=== PATIENT | male | born 1985 | race Caucasian/White ===

== ENCOUNTER 2020-08-28 21:11 | Emergency (ER) | payer BC ==
[~2020-08-28] VITALS: Ht 188 cm; Wt 91.9 kg
--- NOTE | 2020-08-28 21:39 | NUR ---
TASK RN: PT C/O FEVERS FOR A COUPLE WEEKS. PT STATES FEVER AT HOME PRIOR TO COMING TO ER 104. PT TOOK IBUPROFEN AND TYLENOL @2030. PT EDUCATED TO ALTERNATE IBUPROFEN AND TYLENOL, NOT TO TAKE THEM TOGETHER. PT DENIES CP, SOB. PT SPEAKING IN FULL SENTENCES. PT SEEN AT YESTERDAY, PT GIVEN ZITHROMYCIN FOR PNA, NO CXR TAKEN. YESTERDAY'S COVID TEST NEG. PT CONNECTED TO MOITORING. CALL LIGHT IN REACH. JUAN JOSE GUERRERO STATES TO HOLD IBUPROFEN AT THIS TIME. REPORT GIVEN TO ROSA BENNETT.
[2020-08-28] MEDS ORDERED: SODIUM CHLORIDE 0.9% 1,000ML IVBOLUS ONE ×2 (22:00→23:00)
[2020-08-28] MEDS ORDERED: IBUPROFEN 200 MG TABLET PO ONE (22:00)
[2020-08-28] MEDS ORDERED: SODIUM CHLORIDE FLUSH 10ML SYR IVF ONE (22:00)
[2020-08-28 22:27] LABS: BASOPHILS % (AUTO) 0 % (0-1); EOSINOPHILS % (AUTO) 0 % (1-7); LYMPHOCYTES % (AUTO) 8 % (22-44); MEAN CORPUSCULAR HEMOGLOBIN 28.6 pg (27.5-34.5); MEAN CORPUSCULAR HGB CONC 35.3 g/dL (33.2-36.2); MEAN PLATELET VOLUME 8.2 fL (7.4-10.4); MONOCYTES % (AUTO) 6 % (2-9); NEUTROPHILS % (AUTO) 85 % (42-75); PLATELET COUNT 302 x10^3/uL (130-400); RED BLOOD COUNT 4.67 x10^6/uL (4.38-5.82); RED CELL DISTRIBUTION WIDTH 13.2 % (9.4-14.8)
--- NOTE | 2020-08-28 22:29 | NUR ---
PT RESTING ON GURNEY, NAD, APPEARS COMFORTABLE, VSS, PROVIDED URINAL FOR SAMPLE. BED IN LOWEST, CALL LIGHT ON LAP, RAILS IN PLACE, WCTM.
[2020-08-28 22:33] LABS: ALANINE AMINOTRANSFERASE 23 U/L (12-78); ALBUMIN 3.1 g/dL (3.4-5.0); ANION GAP 8 mmol/L (5-15); CALCIUM 8.7 mg/dL (8.5-10.1); CHLORIDE 97 mmol/L (98-107); CREATININE 0.93 mg/dL (0.7-1.3)
[2020-08-28 22:35] LABS: ALKALINE PHOSPHATASE 104 U/L (45-117); BILIRUBIN,TOTAL 1.2 mg/dL (0.2-1.0); TOTAL PROTEIN 7.2 g/dL (6.4-8.2)
--- NOTE | 2020-08-28 22:38 | NUR ---
PT NAD, RESTING ON [employer], UA SENT TO LAB, APPEARS COMFORTABLE, READING LENI, DENIES ADDITIONAL NEEDS AT THIS TIME. WCTM.
[2020-08-28 22:39] LABS: MD NO
[2020-08-28 22:59] LABS: MICROSCOPIC INDICATED
[2020-08-28] MEDS ORDERED: CEFTRIAXONE PMX 1GM/50ML 50 ML ONE (23:16)
[2020-08-28] MEDS ORDERED: CEFTRIAXONE PMX 1GM/50ML 50 ML IV ONE (23:30)
--- NOTE | 2020-08-29 00:08 | NUR ---
PT RESTING ON GURNEY, READING LENI, NAD, APPEARS COMFORTABLE, NO CHANGE IN CONDITION, WCTM. WAITING FOR ADDITIONAL ORDERS
[2020-08-29] MEDS ORDERED: INSULIN REGULAR 100 UNITS/ML, 3ML VIAL SQ-INSULIN ONE (00:30)
[2020-08-29] MEDS ORDERED: INSULIN SINGLE DOSE, ER ONE (00:50)
[2020-08-29 00:58] VITALS: BP 121/80
--- NOTE | 2020-08-29 01:10 | NUR ---
Patient given discharge instructions and they have confirmed that they understand the instructions. Patient ambulatory with steady gait. NAD, DENIES ADDITIONAL QUESTIONS OR NEEDS AT THIS TIME. NO PERSONAL BELONGINGS LEFT IN ROOM AFTER DC.
== END 2020-08-29 01:21 | disposition home or self-care (01) ==
LOC: ED 08-29 01:15
DX: A41.9 Sepsis, unspecified organism (principal); N30.00 Acute cystitis without hematuria; E11.65 Type 2 diabetes mellitus with hyperglycemia; R50.9 Fever, unspecified; R05 Cough; R00.0 Tachycardia, unspecified
CPT/HCPCS: 36415; 71045; 80053; 81001; 82962; 83605; 84145; 85025; 87040; 87077; 87086; 87186; 93005; 96361; 96365; 99285; J0696; J1815; J7030

== ENCOUNTER 2020-08-29 12:46 | Emergency (ER) | payer BC ==
[~2020-08-29] VITALS: Ht 188 cm; Wt 94.4 kg
[2020-08-29] MEDS ORDERED: SODIUM CHLORIDE FLUSH 10ML SYR IVF ONE (13:30)
[2020-08-29] MEDS ORDERED: CEFTRIAXONE PMX 1GM/50ML 50 ML IVPB ONE (13:30)
[2020-08-29 13:47] LABS: BASOPHILS % (AUTO) 1 % (0-1); EOSINOPHILS % (AUTO) 1 % (1-7); LYMPHOCYTES % (AUTO) 15 % (22-44); MEAN CORPUSCULAR HEMOGLOBIN 28.1 pg (27.5-34.5); MEAN CORPUSCULAR HGB CONC 34.5 g/dL (33.2-36.2); MEAN PLATELET VOLUME 7.8 fL (7.4-10.4); MONOCYTES % (AUTO) 9 % (2-9); NEUTROPHILS % (AUTO) 75 % (42-75); PLATELET COUNT 285 x10^3/uL (130-400); RED CELL DISTRIBUTION WIDTH 13.1 % (9.4-14.8)
[2020-08-29 13:48] LABS: MD NO
[2020-08-29] MEDS ORDERED: CEFTRIAXONE PMX 1GM/50ML 50 ML ONE (13:57)
[2020-08-29 14:00] LABS: ALANINE AMINOTRANSFERASE 29 U/L (12-78); ANION GAP 7 mmol/L (5-15); CALCIUM 8.9 mg/dL (8.5-10.1); CHLORIDE 104 mmol/L (98-107); CREATININE 0.96 mg/dL (0.7-1.3)
[2020-08-29 14:02] LABS: ALKALINE PHOSPHATASE 101 U/L (45-117); BILIRUBIN,TOTAL 1.2 mg/dL (0.2-1.0); TOTAL PROTEIN 6.8 g/dL (6.4-8.2)
[2020-08-29 15:50] VITALS: BP 125/84
== END 2020-08-29 16:05 | disposition home or self-care (01) ==
LOC: ED 13:16
DX: N39.0 Urinary tract infection, site not specified (principal); R78.81 Bacteremia; R50.9 Fever, unspecified; E11.9 Type 2 diabetes mellitus without complications
CPT/HCPCS: 36415; 80053; 83605; 85025; 87040; 96365; 99284; J0696